=== PATIENT | female | born 1970 | race Asian ===

== ENCOUNTER 2021-04-30 13:47 | Inpatient (IN) | payer BC ==
[~2021-04-30] VITALS: Ht 317.5 cm; Wt 68.0 kg
[2021-04-30] MEDS ORDERED: MORPHINE SULFATE 4 MG/ML CPJ (NOT FOR IM USE) IV STA ×2 (14:15→17:19)
[2021-04-30] MEDS ORDERED: ONDANSETRON HCL 4MG/2ML INJ IV STA (14:15)
[2021-04-30 14:43] LABS: HEMATOCRIT. 47.3 % (36.0-48.0); HEMOGLOBIN. 15.8 g/dL (12.0-16.0); MEAN CORPUSCULAR HEMOGLOBIN 30.9 pg (28.0-32.0); MEAN CORPUSCULAR VOLUME 92.4 fL (81.0-99.0); MEAN PLATELET VOLUME 8.9 fl (7.4-10.4); PLATELET 172 x1000/uL (130-400); RED BLOOD CELL COUNT 5.12 mill/uL (4.2-5.4); RED CELL DISTRIBUTION WIDTH 13.2 % (11.6-14.6)
[2021-04-30 14:44] LABS: CHLORIDE 104 mEq/L (98-107)
[2021-04-30 15:16] LABS: CLARITY URINE CLEAR (CLEAR); COLOR URINE YELLOW (YELLOW); KETONES URINE 3+ (NEGATIVE); LEUKOCYTE ESTERASE URINE NEGATIVE (NEGATIVE); NITRITE URINE NEGATIVE (NEGATIVE); OCCULT BLOOD URINE NEGATIVE (NEGATIVE); PH URINE 5.5 (4.5-8.0); PROTEIN URINE NEGATIVE (NEGATIVE); SPECIFIC GRAVITY URINE 1.024 (1.005-1.030); UROBILINOGEN URINE 0.2 E.U./dL (0.2-1.0)
[2021-04-30 15:45] LABS: PLATELET ESTIMATE NORMAL
[2021-04-30] MEDS ORDERED: IOHEXOL-300 100 ML BOTTLE ONE (15:48)
[2021-04-30] MEDS ORDERED: CEFTRIAXONE 1 G PREMIX 50 ML IV NR (17:15)
[2021-04-30] MEDS ORDERED: METRONIDAZOLE 500 MG PREMIX 100 ML IV NR (17:30)
[2021-04-30] MEDS ORDERED: SODIUM CHLORIDE 0.9% 1,000 ML IV ONE (17:30)
[2021-04-30] MEDS ORDERED: BUPIVACAINE HCL/PF 0.5% (5MG/ML) 10ML ONE (18:10)
[2021-04-30] MEDS ORDERED: SKIN ADHESIVE 0.7 GM EA TOP ONE (18:10)
[2021-04-30] MEDS ORDERED: FENTANYL CITRATE/PF 50MCG/ML 2ML VIAL ONE (18:40)
[2021-04-30] MEDS ORDERED: MIDAZOLAM HCL 2 MG/2 ML VIAL ONE (18:40)
[2021-04-30] MEDS ORDERED: PROPOFOL 200MG/20ML VIAL IV ONE (18:40)
[2021-04-30] MEDS ORDERED: NEOSTIGMINE METHYLSULFATE 1MG/ML 10 ML VIAL ONE (18:40)
[2021-04-30] MEDS ORDERED: GLYCOPYRROLATE 0.2 MG/ML 2ML VIAL ONE ×2 (18:40→19:28)
[2021-04-30] MEDS ORDERED: ROCURONIUM BROMIDE 10MG/ML VIAL 5ML IV ONE (18:40)
[2021-04-30] MEDS ORDERED: DEXAMETHASONE 4MG/ML 1ML VIAL ONE (18:44)
[2021-04-30] MEDS ORDERED: ONDANSETRON HCL 4MG/2ML INJ ONE (18:44)
[2021-04-30] MEDS ORDERED: ONDANSETRON HCL 4MG/2ML INJ IV PRN ×2 (18:45→19:15)
[2021-04-30] MEDS ORDERED: MORPHINE SULFATE 4 MG/ML CPJ (NOT FOR IM USE) IV PRN (18:45)
[2021-04-30] MEDS ORDERED: DEXT 5%/0.45% NACL KCL 20MEQ/L 1,000 ML IV SCH (19:15)
[2021-04-30] MEDS ORDERED: LABETALOL 5MG/ML SYR 20 MG/4 ML SYRINGE IV PRN (19:15)
[2021-04-30] MEDS ORDERED: MEPERIDINE HCL/PF 25MG/ML CPJ IV PRN (19:15)
[2021-04-30] MEDS: HYDROMORPHONE HCL/PF 2MG/ML CPJ IV PRN ×3 (19:40→19:54)
[2021-04-30 21:53] VITALS: BP 100/53
[2021-04-30] MEDS: DEXT 5%/0.45% NACL KCL 20MEQ/L 1,000 ML IV SCH (22:45)
[2021-04-30] MEDS: MORPHINE SULFATE 2 MG/ML CPJ (NOT FOR IM USE) IV PRN (23:26)
[2021-05-01] MEDS: MORPHINE SULFATE 2 MG/ML CPJ (NOT FOR IM USE) IV PRN (02:54)
[2021-05-01] MEDS ORDERED: ACETAMINOPHEN 325MG TABLET PO PRN (07:45)
[2021-05-01 08:00] VITALS: BP 105/73
[2021-05-01] MEDS ORDERED: NALOXONE HCL 0.4MG/ML VIAL IV PRN (08:00)
[2021-05-01] MEDS: DEXT 5%/0.45% NACL KCL 20MEQ/L 1,000 ML IV SCH (08:16)
[2021-05-01] MEDS: HYDROCODONE/ACETAMINOPHEN 5/325MG TABLET PO PRN ×2 (08:23→18:13)
[2021-05-01 12:00] VITALS: BP 103/70
[2021-05-01 13:28] VITALS: BP_SYST 103; BP_SYST 106; BP_DIAS 70
[2021-05-01 16:00] VITALS: BP 106/70
[2021-05-01 20:00] VITALS: BP 109/70
[2021-05-01] MEDS ORDERED: TEMAZEPAM 15MG CAPSULE PO PRN (22:00)
[2021-05-02] VITALS: BP 99/50
[2021-05-02 04:00] VITALS: BP 106/61
[2021-05-02] MEDS: HYDROCODONE/ACETAMINOPHEN 5/325MG TABLET PO PRN ×2 (05:34→10:53)
[2021-05-02 08:00] VITALS: BP 100/66
[2021-05-02 10:53] VITALS: BP 106/70
== END 2021-05-02 11:35 | disposition home or self-care (01) | DRG 342 ==
LOC: ER 13:47 → 6EST 17:19 → EDBEDREQ 17:27 → ENRESERV 19:55 → CANBEDREQ 19:56
PROVIDERS: ADMIT Internal Medicine; ATTEND Internal Medicine
PROC: 0DTJ4ZZ Resection of Appendix, Percutaneous Endoscopic Approach (ICD-10-PCS; principal; 2021-04-30)
DX: K35.80 Unspecified acute appendicitis (principal); K56.7 Ileus, unspecified; R51.9 Headache, unspecified; Z20.822 Contact with and (suspected) exposure to COVID-19; K76.89 Other specified diseases of liver; Z98.51 Tubal ligation status; Z90.49 Acquired absence of other specified parts of digestive tract
CPT/HCPCS: 36415; 71045; 74177; 76830; 76856; 80053; 81003; 83880; 84484; 85025; 87426; 88304; 93005; 99285; J0696; J1100; J1170; J2250; J2270; J2405; J2704; J2710; J3010; J3490; J7030; Q9967